=== PATIENT | female | born 1990 | race Hispanic/Latino ===

== ENCOUNTER 2017-02-18 21:21 | Emergency (ER) | payer MEDICAID ==
[2017-02-18 21:21] VITALS: BMI 29.0
[2017-02-18] MEDS ORDERED: Sodium Chloride 0.9% 1,000 ML IV STA (23:02)
--- NOTE | 2017-02-18 23:06 | ED PDOC ---
HPI: General Adult Time Seen by Provider: 02/18/17 22:42 Chief Complaint (Nursing): GI Problem Chief Complaint (Provider): dizziness, vomiting History Per: Patient History/Exam Limitations: no limitations Onset/Duration Of Symptoms: Days (4), Waxing/Waning Current Symptoms Are (Timing): Still Present Additional History Per: Patient Additional Complaint(s): 26 y/o female history of depression, anxiety presents for eval of intermittent dizziness with vomiting x 4 days. Patient states she has been very stressed at work, had a big presentation last week which did not go well, the next day symptoms started. She notes having a large panic attack that night and since then to have intermittent dizziness (which she describes as lightheaded), pain/ pressure behind both eyes, and nausea with vomiting. Patient seen at urgent care today and prescribed Tramadol but patient states she is unable to keep it down due to vomiting. Denies fever, extremity numbness/weakness, chest pain, shortness of breath, palpitations, abdominal pain. Patient states she follows up with a psychiatrist regularly. Denies suicidal/homicidal ideations. Past Medical History Reviewed: Historical Data, Nursing Documentation, Vital Signs Vital Signs: Last Vital Signs Temp 98.4 F 02/18/17 21:49 Pulse 110 H 02/18/17 21:49 Resp 20 02/18/17 21:49 BP 130/80 02/18/17 21:49 Pulse Ox 99 02/18/17 23:07 - Medical History PMH: Anxiety, Depression Denies: Chronic Kidney Disease - Family History Family History: States: Unknown Family Hx - Immunization History Hx Tetanus Toxoid Vaccination: No Hx Influenza Vaccination: No Hx Pneumococcal Vaccination: No - Home Medications Home Medications: Ambulatory Orders Medication Instructions Recorded Alprazolam [Xanax] 0.5 mg PO Q12 PRN #2 tab 06/07/16 Ibuprofen [Motrin Tab] 1 tab PO Q8 PRN #21 tab 06/07/16 oxyCODONE/Acetaminophen [Percocet 1 ea PO Q6 PRN #10 tab 06/07/16 5/325 mg Tab] oxyCODONE/Acetaminophen [Percocet 1 ea PO BID PRN #10 tab 06/09/16 5/325 mg Tab] Acetaminophen [Tylenol Extra 1,000 mg PO BID 06/27/16 Strength] Birthcontrol Pill 1 tab PO DAILY 06/27/16 Cephalexin [Keflex] 500 mg PO TID 06/27/16 buPROPion SR [Wellbutrin SR 150 MG] 150 mg PO DAILY 06/27/16 diaZEpam [Valium] 5 mg PO TID #10 tab 06/27/16 oxyCODONE/Acetaminophen [Percocet 1 tab PO Q4 PRN #0 tab 06/27/16 5/325 mg Tab] traMADol [Ultram] 75 mg PO HS 06/27/16 Famotidine [Pepcid] 20 mg PO BID #20 tab 06/28/16 Sulfamethoxazole/Trimethoprim 1 tab PO BID #14 tab 06/28/16 [Bactrim DS 800 mg-160 mg] hydrOXYzine HCl [Atarax] 25 mg PO Q8H #15 tab 06/28/16 Ondansetron ODT [Zofran ODT] 4 mg PO Q8 PRN #10 odt 02/19/17 - Allergies Allergies/Adverse Reactions: Allergies Allergy/AdvReac Type Severity Reaction Status Date / Time hydrocodone bitartrate Allergy VOMITING Verified 06/09/16 18:45 [From Vicodin] Review of Systems ROS Statement: Except As Marked, All Systems Reviewed And Found Negative Gastrointestinal: Positive for: Nausea, Vomiting Neurological: Positive for: Dizziness Physical Exam - Reviewed Nursing Documentation Reviewed: Yes Vital Signs Reviewed: Yes - Physical Exam Appears: Positive for: Well, Non-toxic, Uncomfortable (anxious/nervous) Head Exam: Positive for: ATRAUMATIC, NORMAL INSPECTION, NORMOCEPHALIC Skin: Positive for: Normal Color Eye Exam: Positive for: Normal appearance, EOMI, PERRL ENT: Positive for: Normal ENT Inspection Cardiovascular/Chest: Positive for: Regular Rate, Rhythm Respiratory: Positive for: Normal Breath Sounds Gastrointestinal/Abdominal: Positive for: Normal Exam Back: Positive for: Normal Inspection Extremity: Positive for: Normal ROM Neurologic/Psych: Positive for: Alert, Oriented. Negative for: Motor/Sensory Deficits - Laboratory Results Result Diagrams: 02/18/17 23:34 02/18/17 23:34 - ECG ECG: Positive for: Viewed By Me (reviewed by ED attending) ECG Rhythm: Positive for: Sinus Rhythm O2 Sat by Pulse Oximetry: 99 - Progress ED Course And Treament: labs, IV fluids, IV ativan, IV zofran, IV toradol On re-eval, patient resting comfortably; states symptoms improved. Tolerating PO. POtassium PO ordered for K level 3.0. Patient educated on findings, discharged with rx Zofran. Advised to continue previous meds PRN. Fluids. Follow up PMD 2-3 days. Follow up psychiatrist Return to ED for worsening/concerning symptoms. Disposition - Clinical Impression Clinical Impression: Dizziness, Headache, Anxiety, Hypokalemia - Patient ED Disposition Is Patient to be Admitted: No Counseled Patient/Family Regarding: Studies Performed, Diagnosis, Need For Followup, Rx Given - Disposition Disposition: Routine/Home Disposition Time: 01:43 Condition: IMPROVED Prescriptions: Ondansetron ODT [Zofran ODT] 4 mg PO Q8 PRN #10 odt PRN Reason: Nausea/Vomiting Instructions: Acute Headache (ED), Dizziness (ED), Anxiety (ED)
[2017-02-18 23:38] LABS: BASO % 0.4 % (0.0-2.0); EOS % 0.6 % (0.0-4.0); HEMATOCRIT 39.9 % (34.0-47.0); LYMPH # 1.8 K/uL (1.0-4.3); LYMPH % 31.9 % (20.0-40.0); MEAN CELL VOLUME 84.2 fl (81.0-99.0); MEAN CORPUSCULAR HGB CONC 33.3 g/dL (33.0-37.0); MEAN PLATELET VOLUME 8.9 fl (7.2-11.7); MONO # 0.6 K/uL (0.0-0.8); MONO % 10.2 % (0.0-10.0); NEUT # 3.2 K/uL (1.8-7.0); NEUT % 56.9 % (50.0-75.0); RED CELL DISTRIBUTION WIDTH 12.6 % (11.5-14.5); WHITE BLOOD COUNT 5.6 K/uL (4.8-10.8)
[2017-02-18 23:57] LABS: ALB/GLOB RATIO 1.4 (1.0-2.1); ALKALINE PHOSPHATASE 67 U/L (38-126); ALT/SGPT 33 U/L (9-52); AST/SGOT 30 U/L (14-36); BILIRUBIN,TOTAL 0.2 mg/dl (0.2-1.3); BLOOD UREA NITROGEN 8 mg/dl (7-17); CALCIUM 9.4 mg/dL (8.4-10.2); CARBON DIOXIDE 25 mmol/L (22-30); CHLORIDE 102 mmol/L (98-107); GFR AFRICAN-AMERICAN > 60; GLUCOSE,RANDOM 110 mg/dL (65-105); SODIUM 139 mmol/l (132-148); TOTAL PROTEIN 7.7 G/DL (6.3-8.2)
[2017-02-19] MEDS ORDERED: Potassium Chloride 20 mEq ER Tab PO ONE ×2 (00:07→00:38)
[2017-02-19 01:59] VITALS: BP 115/80; PULSE 89; RESP 16; TEMP 98.1; O2SAT 100
--- NOTE | 2017-02-19 07:49 | CARD ---
APPROVED REPORT EKG Measurement Heart [id number] <Conclusion> Normal sinus rhythm Normal ECG
== END 2017-02-19 02:01 | disposition home or self-care (01) ==
LOC: H.ER 21:21
DX: R42 Dizziness and giddiness (principal); R51 Headache; F41.9 Anxiety disorder, unspecified; E87.6 Hypokalemia; F32.9 Major depressive disorder, single episode, unspecified; R11.10 Vomiting, unspecified